=== PATIENT | male | born 1945 | race Caucasian/White ===

== ENCOUNTER 2019-04-08 10:54 | Outpatient (CLI) | payer OTHER | END 2019-04-08 10:55 | disposition home or self-care (01) | LOC: RAD 10:54 | DX: M54.2 Cervicalgia (principal); M65.312 Trigger thumb, left thumb ==

== ENCOUNTER → 2020-08-16 11:31 | Outpatient (CLI) | payer OTHER | END | disposition home or self-care (01) | LOC: LAB 11:31 | PROVIDERS: ATTEND Internal Medicine | DX: R30.0 Dysuria (principal); K92.1 Melena; E55.9 Vitamin D deficiency, unspecified ==

== ENCOUNTER 2020-08-17 12:01 | Outpatient (CLI) | payer OTHER | END 2020-08-17 12:11 | disposition home or self-care (01) | LOC: LAB 12:01 | PROVIDERS: ATTEND Internal Medicine | DX: C61 Malignant neoplasm of prostate (principal); R30.0 Dysuria; E55.9 Vitamin D deficiency, unspecified; K92.1 Melena ==